=== PATIENT | female | born 1965 | race Caucasian/White ===

== ENCOUNTER 2019-01-26 18:57 | Inpatient (IN) | payer BC ==
[~2019-01-26] VITALS: Ht 162.6 cm; Wt 71.3 kg
[~2019-01-26 18:57] MED LIST: PROMETHAZINE HC25 M1 PO; VENTOLIN HFA18 GM INH
[2019-01-26] MEDS ORDERED: NOVOLOG100 UNIT/2 SQ (19:34)
--- NOTE | 2019-01-27 | NUR ---
PT ARRIVED VIA STRETCHER WITH NURSING TRANSISTOR TESTER. INSULIN DRIP INFUSING AND 5 UNITS/HR. PT BLOOD SUGAR UPON ARRIVAL 262, DRIP TITRATED TO 4.2 UNITS/HR AT THIS TIME. PT VOMIITING UPON ARRIVAL. COFFEE GROUND EMESIS NOTED. PT GIVEN PRN NAUSEA MEDICATION (SEE EMAR).
--- NOTE | 2019-01-27 00:50 | NUR ---
PT NO LONGER NAUSEATED OR WRETCHING. RESTING WITH EYES CLOSED, BREATHING SHALLOW BUT UNLABORED. OXYGEN SATURATIONS DROPPED BREIFLY INTO THE MID 60'S WHILE PT WAS SLEEPING. PLACED ON 2 L NC AT THIS TIME.
--- NOTE | 2019-01-27 01:00 | NUR ---
INSULIN DRIP TITRATED TO 2.8 UNITS/HOUR FOR A BLOOD GLUCOSE OF 203. LACTATED RINGERS BOLUS CONTINUES TO INFUSE AT THIS TIME.
--- NOTE | 2019-01-27 02:00 | NUR ---
INSULIN DRIP TITRATED TO 4 UNITS/HR FOR A BLOOD GLUCOSE OF 203
--- NOTE | 2019-01-27 02:19 | NUR ---
PT NAUSEATED AND DRY HEAVING. GIVEN PRN ATIVAN AT THIS TIME.
--- NOTE | 2019-01-27 03:16 | NUR ---
INSULIN DRIP TITRATED TO 1.8 UNITS/HR FOR A BLOOD GLUCOSE OF 151. IV FLUIDS SWITCHED TO D5 1/2 NS AT 125 AN HOUR FOR BLOOD GLUCOSE LESS THAN 200. PT RESTING WITH EYES CLOSED. BREATHING EVEN AND UNLABORED R=16. PT OXYGEN SATURATIONS AT 100 PERCENT ON 2 L NC
--- NOTE | 2019-01-27 04:00 | NUR ---
IN TO ASSESS PATIENT, PT REMAINS ASLEEP DURING ASSESSMENT. LUNGS SOUND DIMINISHED IN BOTH BASES. RESPIRATIONS EVEN, SHALLOW, BUT UNLABORED R=18.
--- NOTE | 2019-01-27 05:00 | NUR ---
INSULIN DRIP TITRATED TO 2.4 UNITS/HR FOR BLOOD GLUCOSE OF 179.
--- NOTE | 2019-01-27 06:15 | NUR ---
PT UP TO BSC TO VOID AND BACK TO BED. STEADY OF FEET. DENIES NAUSEA OR PAIN AT THIS TIME. ABLE TO TOLERATE ICE CHIPS. CALL LIGHT WITHIN REACH. NO FURTHER NEEDS AT THIS TIME.
--- NOTE | 2019-01-27 06:30 | NUR ---
PT GIVEN PRN ZOFRAN FOR NAUSEA (SEE EMAR).
--- NOTE | 2019-01-27 07:28 | NUR ---
REPORT RECEIVED FROM MANAGER TECHNICAL SALES RN.
--- NOTE | 2019-01-27 08:00 | NUR ---
ASSESSMENT COMPLETED. PT STILL WITH NAUSEA. REGLAN ADNINSTERED. PT UNABLE TO TOLERATE ICE CHIPS. PT WITH HARCH PRODUCTIVE COUGH. COUGHING UP MODERATE AMOUNT OF GREEN SPUTUM. BASES OF LUNGS DIM. PULSES +2. PT GENERALLY PUFFY ALL OVER. NO PITTING EDEMA. PT ON RA. SATURATION 95%. PT TACHY AT 106. AFEBRILE. PT DROWSY BUT ORIENTED. BLOOD SUGAR TAKEN AT 196. TITRATED INSULINE FORM 2.3 TO 2.8. DOUBLE CHECKED BY DARRION BOWEN. CALL LIGHT IN REACH. UPDATED ON PLANE OF CARE.
--- NOTE | 2019-01-27 08:30 | NUR ---
NAUSEA UNRELIEVED WITH REGLAN. 1MG ATIVAN ADMINSITERED. PT WITH INCREASED DROWSINESS. O2 SATURATION TO 87%. 2L NC PLACED. SATS NOW 96%.
--- NOTE | 2019-01-27 09:00 | NUR ---
BLOOD SUGAR 169. TITRATED DRIP TO 2.4. DOUBLE CHECKED BY DARRION BOWEN. PT STILL DROWSY. CHANGED FLUIDS TO D5 AT 125. 500ML LR BOLUS INFUSING AT 550ML/HR. IV STARTED IN LEFT HAND.
--- NOTE | 2019-01-27 10:00 | NUR ---
ASLEEP, ACCUCHECK-181. INSULIN GTT REMAINS 2.4 UNITS/HR. NO FUTHER CHANGES.
--- NOTE | 2019-01-27 10:24 | EKG ---
[facility] [address] [facility] [place] [address] Signed Sinus tachycardia Possible Left atrial enlargement Borderline ECG When compared with ECG of 02-FEB-2016 14:20, Nonspecific T wave abnormality now evident in Anterolateral leads Confirmed by CARLENE DEMPSEY DO ([id number]) on 01/27/2019 10:24:39 AM Electronically Signed By: CARLENE DEMPSEY DO 01/27/19 1024 PATIENT NAME: VERNBRANDONMARIBEL YANEZ Electrocardiogram DATE OF : 69 PHYSICIAN: CARLENE DEMPSEY DO REPORT #: [id number] REPORT IS CONFIDENTIAL AND NOT TO BE RELEASED WITHOUT AUTHORIZATION
--- NOTE | 2019-01-27 10:59 | NUR ---
BLOOD SUGAR 192. TITRATED TO 2.8ML/HR. PT STILLS SOMNULENT. WAKES TO LIGHT TOUCH. CALL LIGHT IN REACH.
--- NOTE | 2019-01-27 11:40 | NUR ---
PT ASSISTED TO SIDE OF BED. ABLE TO TAKE 3 BITES OF ICE CHIPS W/O NAUSE OR VOMITING. TAMAFLU ADMINSTERED. PT TOLERATED WELL. WILL CONT TO MONITOR.
--- NOTE | 2019-01-27 12:00 | NUR ---
BLOOD SUGAR 165. INSUIN TITRATED TO 2.4.
--- NOTE | 2019-01-27 13:10 | NUR ---
BLOOD SUGAR 154. TITRATED DRIP TO 1ML/HR. PT UP TO BSC. VOIDED 330ML. ASSISTED BACK TO BED. DRANK SOME WATER AND ATE ICE SHIPS WITHOUT NAUSEA OR VOMITING. CALL LIGHT IN REACH. DENIES PAIN.
--- NOTE | 2019-01-27 14:20 | NUR ---
BLOOD GLUCOSE 189. TITRATED TO 2.8ML/HR. PT LYING IN BED WITH EYES CLOSED. RESPIRATIONS 16 EQUAL AND NONLABORED. CALL LIGHT IN REACH.
--- NOTE | 2019-01-27 15:21 | NUR ---
BLOOD SUGAR 161. TITRATED TO 2ML/HR. PT SITTING UP AT SIDE OF BED MORE ALERT. ABLE TO ANSWER QUESTIONS.ON RA. DRANK 300 ML WITH NO NAUSEA/VOMITING. DENIES NAUSEA/PAIN AT THIS TIME. REGLAN ADMINISTERED AND POTASSIUM STARTED. CALL LIGHT IN REACH. PT DENEIS FURTHER NEEDS.
--- NOTE | 2019-01-27 16:04 | NUR ---
PT WITH STOOL INCONTINENCE. LINENS CHANGED. PT UP TO [facility]. VOIDED 300ML. PT ASSISTED TO SIT UP IN CHAIR. [facility]. MINT TEA PROVIDED PER PT REQUEST. DENIES NAUSEA OR PAIN.
--- NOTE | 2019-01-27 17:00 | NUR ---
BLOOD GULOSE 129. INSULIN TITRATED TO 0.7.
--- NOTE | 2019-01-27 18:00 | NUR ---
BLOOD SUGAR 163. DRIP KEPT AT 0.7ML/HR. LANTUS 18 UNITS ADMINISTERED. PT ATE 20% OF LIQUID DINNER TRAY. DR DEMPSEY TO BEDSIDE TO TALK TO PT. NEW ORDERS RECIEVED. PT IN BED. CALL LIGHT IN REACH.
--- NOTE | 2019-01-27 19:02 | NUR ---
INSULIN GTT DC'D PER ORDERS. PATIENT IS RESTFUL. NO FUTHER CHANGES.
--- NOTE | 2019-01-27 19:19 | NUR ---
PT REPORT RECIEVED FROM CCU RN. CARE OF PATIENT ASSUMED AT THIS TIME.
--- NOTE | 2019-01-27 19:45 | NUR ---
IN ROOM FOR ASSESSMENT. PT SLEEPY, BUT RESPONDS TO QUESTIONS AND INSTRUCTIONS APPROPRIATELY. DENIES NAUSEA OR PAIN. POTASSIUM INFUSING. CALL LIGHT WITHIN REACH. NO FURTHER NEEDS AT THIS TIME.
--- NOTE | 2019-01-27 20:55 | NUR ---
PT AMBULATED TO BATHROOM, STAND BY ASSIST ONLY REQUIRED. STEADY ON FEET. OM CARES PERFORMED INDEPENDENTLY. DENIES PAIN OR NAUSEA. CALL LIGHT WITHIN REACH. NO FURTHER NEEDS AT THIS TIME.
--- NOTE | 2019-01-27 22:00 | NUR ---
PT RESTING WITH EYES CLOSED. BREATHING EVEN AND UNLABORED R=20. PT HAS INTERMITTENT PRODUCTIVE COUGH. PATIENT BELONGINGS AND CALL LIGHT WITHIN REACH.
--- NOTE | 2019-01-27 23:47 | NUR ---
IN ROOM FOR ASSESSMENT. PT ALERT AND ORIENTED, DENIES PAIN, NAUSEA, OR DISCOMFORT. LUNGS SOUND CLEAR IN ALL AIR CORADO. PT OXYGEN SATURATIONS AT 93 PERCENT ON 2 L NC. CALL LIGHT WITHIN REACH. NO FURTHER NEEDS AT THIS TIME.
--- NOTE | 2019-01-28 02:46 | NUR ---
WHILE IN A DEEP SLEEP PT IS HAVING INTERMITTENT PERIODS OF SLEEP APNEA. O2 SATURATIONS DROP INTO MID 80'S WHILE ON 2 L NC, AND THEN BACK UP INTO THE MID 90'S.
--- NOTE | 2019-01-28 03:42 | NUR ---
IN ROOM FOR ASSESSMENT. PT AWOKE TO HAVE TEMPERATURE TAKEN BUT THEN FELL BACK ASLEEP WHILE ASSESSMENT WAS COMPLETED. LUNGS CLEAR. OXYGEN SATURATIONS AT 90-92 PERCENT ON 2 L NC, WITH SHORT INTERMITTENT PERIODS OF DESATURATION INTO THE MID 80S. WILL CONTINUE TO MONITOR
--- NOTE | 2019-01-28 05:07 | NUR ---
PT UP AND AMBULATED TO BATHROOM, BEGAN MENSES. FEMININE HYGIENE PRODUCTS PROVIDED. PT ALERT AND ORIENTED. STEADY ON FEET. PT DENIES NAUSEA. PT STATES, "I AM FEELING BETTER THAN I HAVE, AND WOULD LIKE A SHOWER TODAY". BACK IN BED, CALL LIGHT WITHIN REACH. NO FURTHER NEEDS AT THIS TIME.
--- NOTE | 2019-01-28 06:12 | NUR ---
PT REMOVED OXYGEN WHILE SLEEPING, SATURATIONS DROPPED INTO THE MID 80'S. PT PLACED BACK ON 2 L NC. SATURATIONS BACK UP BETWEEN 88-92 PERCENT AT THIS TIME.
--- NOTE | 2019-01-28 07:30 | NUR ---
REPORT RECIEVED. PATIENT IS UP TO BR, BACK TO BED. DENIES PAIN. TALKED WITH PATIENT ABOUT POC FOR DAY, IS UNDERSTANDING.
--- NOTE | 2019-01-28 07:50 | NUR ---
IV SITE TO LEFT HAND LEAKING, THIS DC'D WITH CATH INTACT.
--- NOTE | 2019-01-28 08:30 | NUR ---
BACK TO BR TO VOID AND EXPELL LIQUID STOOL. STATES SHE IS HAVING MENSTRUAL CRAMPS. TO CHAIR FOR BREAKFAST.
--- NOTE | 2019-01-28 09:00 | NUR ---
TOOK FEW BITES OF BREAKFAST, TOLERATED WELL. DENIES NAUSEA.
--- NOTE | 2019-01-28 09:20 | NUR ---
DR. DEMPSEY HERE TO SEE PATIENT. ORDERS RECIEVED TO TRANSFER TO MED-SURG.
--- NOTE | 2019-01-28 10:00 | NUR ---
SLEEPING IN CHAIR. NO DISTRESS NOTED.
--- NOTE | 2019-01-28 10:30 | NUR ---
SLEEPING IN CHAIR. NO DISTRESS NOTED.
--- NOTE | 2019-01-28 11:30 | NUR ---
AMBULATED TO ROOM 123. SHOWER TAKEN. IS STABLE ON FEET. DENIES PROBLEMS.
--- NOTE | 2019-01-28 12:15 | NUR ---
IV 22 STARTED TO LEFT HAND.
--- NOTE | 2019-01-28 12:30 | NUR ---
PATIENT DOING WELL. SITTING UP IN BED READY TO EAT LUNCH. BEDSIDE REPORT GIVEN TO Ian HOSKINS RN. ACCUCHECK-186. 4 UNITS INSULIN GIVEN.
--- NOTE | 2019-01-28 12:43 | NUR ---
RECIEVED BEDSIDE REPORT FROM DARRION CCU RN. PT AWAKE AND ALERT IN BED. SHE HAS SHOWERED, HAS A NEW IV IN LFA PER HER REQUEST. EATING WELL. DRINKING WELL. ACCUCHECK AND SS INSULIN. NO NEEDS AT THIS TIME.
--- NOTE | 2019-01-28 15:13 | NUR ---
PT RESTING. NO NEEDS AT THIS TIME. STATES NEW IV IS MUCH MORE COMFORTABLE THAN PREVIOUS ONE. CALL LIGHT AND WATER IN REACH.
--- NOTE | 2019-01-28 16:08 | NUR ---
HELPED PATIENT ODERED HER DINNER. WHEN SHE GOT OVER HERE DARRION FROM CCU HELPED HER WITH HER SHOWER.
--- NOTE | 2019-01-28 19:41 | NUR ---
DID PATIENT'S BLOOD SUGAR CHECK BEFORE HER DINNER CAME.
--- NOTE | 2019-01-28 21:17 | NUR ---
PT INDEPENDENT IN ROOM, NO COUCH NOTED. COOP WITH ASSESSMENT. LUNGS SLIGHTLY DIM AT BASES, ON ROOM AIR. NO C/O PAIN. CBG 223, RECEIVED 4 UNITS SS INSULIN HUMALOG. SL PATENT, NO C/O N/V. VOIDING LARGE AMOUNTS OF URINE. RED COLORED PT JUS STARTED HER MENSES, ON DROPLET ISOLATION, CALL LIGHT AND FLUIDS AT BEDSIDE,
--- NOTE | 2019-01-29 00:01 | NUR ---
resting, eyes closed, no distress, contineus on droplet isolation. independent in room. call light at bedside, no n.v
--- NOTE | 2019-01-29 02:00 | NUR ---
resting, eyes closed, resp even and unlabored, no distress. Continues on droplet isolation, call light at bedside
--- NOTE | 2019-01-29 06:05 | NUR ---
PT HAS SLEPT MOST OF THIS SHIFT, CONTINUES TO BE ON DROPLET PRECAUTION S. PT ON ROOM AIR, MOIST SLIGHTLY PRODUCTIVE COUGH PRESENT, NO C/O SOB, INDEPENDENT IN ROOM. CBG 223 AT HS, RECEIVED 4 UNITS SLIDING SCALE, NO C/O PAIN, COOP WITH ASSESSMENT, PT TO BE DC HOME TODAY. TOLERATING DIET WELL
--- NOTE | 2019-01-29 08:00 | NUR ---
PT SITTING UP IN BED EATING BREAKFAST, ALERT AND ORIENTED TO ALL. PT DENIES PAIN, NAUSEA OR OTHER CONCERN AT THIS TIME. IV TO LEFT HAND FLUSHES EASILY, DRESSING CDI. ASSESSMENT COMPLETED. FRESH COFFEE PROVIDED PER PT REQUEST. CALL LIGHT WITHIN REACH.
[2019-01-29] MEDS ORDERED: OSELTAMIVIR PHO75 MG PO (09:14)
[2019-01-29] MEDS ORDERED: TOUJEO SOL300 UNIT/1 SUB-Q (10:04)
[2019-01-29] MEDS ORDERED: FARXIGA10 MG PO (10:05)
[2019-01-29] MEDS ORDERED: PROTONIX40 MG PO (10:05)
--- NOTE | 2019-01-29 10:19 | NUR ---
MED REC COMPLETE
--- NOTE | 2019-01-29 10:53 | NUR ---
PT INDEPENDENT IN ROOM. SITTING ON COUCH. DC INSTRUCTIONS GIVEN, QUESTIONS ANSWERED. IV DC'D, CATH TIP INTACT, SITE WITHOUT REDNESS OR INFLAMMATION. PT WOULD LIKE TO STAY TO EAT LUNCH. CALL LIGHT WITHIN REACH.
--- NOTE | 2019-01-29 10:55 | NUR ---
PATIENT SITTING UP IN BED WATCHING TV. FRESH WATER GIVEN. CALL LIGHT IN REACH. NO FURTHER NEEDS AT THIS TIME.
== END 2019-01-29 12:50 | disposition home or self-care (01) | DRG 73 ==
LOC: ED 18:57 → CCU 22:22 → MS 01-28 11:25
PROVIDERS: ADMIT Student in an Organized Health Care Education/Training Program
DX: E10.43 Type 1 diabetes mellitus with diabetic autonomic (poly)neuropathy (principal); K22.6 Gastro-esophageal laceration-hemorrhage syndrome; N17.9 Acute kidney failure, unspecified; E87.0 Hyperosmolality and hypernatremia; E10.10 Type 1 diabetes mellitus with ketoacidosis without coma; K31.84 Gastroparesis; K21.9 Gastro-esophageal reflux disease without esophagitis; J10.1 Influenza due to other identified influenza virus with other respiratory manifestations; Z79.899 Other long term (current) drug therapy; Z79.4 Long term (current) use of insulin
CPT/HCPCS: 36415; 80048; 80053; 81001; 82010; 82800; 83735; 84100; 85025; 85610; 85730; 86850; 86900; 86901; 93005; 93010; 96361; 96374; 96375; 96376; 99285-25; C9113; J1815; J2060; J2405; J2765; J3480; J7030; J7042; J7060; J7070; J7121

== ENCOUNTER 2020-12-23 20:47 | Inpatient (IN) | payer OTHER ==
[~2020-12-23] VITALS: Ht 162.6 cm; Wt 82.6 kg
[~2020-12-23 20:47] MED LIST changes: +FARXIGA10 MG PO; +NOVOLOG100 UNIT/2 SQ; +OSELTAMIVIR PHO75 MG PO; +PROTONIX40 MG PO; +TOUJEO SOL300 UNIT/1 SUB-Q
--- NOTE | 2020-12-24 07:22 | EKG ---
[facility] [address] [facility] [place] [address] \T\ T wave abnormality, consider inferior ischemia ST \T\ T wave abnormality, consider anterolateral ischemia Abnormal ECG When compared with ECG of 26-JAN-2019 19:57, ST now depressed in Lateral leads T wave inversion now evident in Inferior leads T wave inversion now evident in Anterolateral leads Confirmed by NILTON MAHAJAN MD ([id number]) on 12/24/2020 7:22:43 AM Electronically Signed By: NILTON MAHAJAN MD 12/24/20 0722 PATIENT NAME: BRANDON PORRAS Electrocardiogram DATE OF : 69 PHYSICIAN: NILTON MAHAJAN MD REPORT #: [id number] REPORT IS CONFIDENTIAL AND NOT TO BE RELEASED WITHOUT AUTHORIZATION
--- NOTE | 2020-12-25 07:17 | CONS ---
[facility] [address] [place], [place] [address] Signed DATE OF CONSULTATION: 12/24/2020 CHIEF COMPLAINT: Coffee-ground emesis. HISTORY OF PRESENT ILLNESS: Brandon is a 55-year-old obese diabetic female, who unfortunately found herself with high blood sugars and she could not get them to come down. She started vomiting and developed coffee-grounds emesis. She came to the emergency room for evaluation. She is minimally responsive, but follows very simple commands. She has been tachycardic and her lactic acid was elevated with very high blood sugars. She was in high output renal failure. She has been admitted to the Internal Medicine Service. She received one dose of cefepime. She has been receiving IV fluids and initially a bolus insulin, now insulin drip. She is off her norepinephrine drip. Her labs are improving, although she still quite sick. Blood sugars were down below 200. An NG tube in place and she does have the dark coffee-ground fluid from her stomach. Otherwise, she has actually made some improvements overnight. I have been asked to see her as a general surgeon on-call. PAST MEDICAL HISTORY: GI bleed, type 2 diabetes, gastroesophageal reflux disease, pneumonia, anemia, hypokalemia, esophagitis, and T3-T4 compression fracture from a horse accident. PAST SURGICAL HISTORY: Upper endoscopy in 2013 and in [address] Rivera for acid reflux. A colonoscopy in [address] Rivera for collagenous colitis and a recent upper endoscopy in October 2020 with that same group with yeast esophagitis, requiring Diflucan. Also cataract surgery with Dr. Sergey Gaines. SOCIAL HISTORY: She does not smoke or drink. Dr. Bianca Lock is her primary care provider. She prefers the [facility]. Darío is her at . FAMILY HISTORY: Not available. REVIEW OF SYSTEMS: I reviewed her last progress note from Dr. Lock's office. ALLERGIES: None. MEDICATIONS: 1. Oseltamivir . Electronically Signed By: VICTOR MANUEL MYERS MD 12/25/20 0717 PATIENT NAME: BRANDON PORRAS CONSULTATION DATE OF : 69 REPORT #: [id number] PHYSICIAN: VICTOR MANUEL MYERS MD PCP: BIANCA LOCK MD REPORT IS CONFIDENTIAL AND NOT TO BE RELEASED WITHOUT AUTHORIZATION [facility] [address] [place], [place] [address] Signed 2. Farxiga. 3. Toujeo. 4. Protonix. 5. Also, Diflucan. PHYSICAL EXAMINATION: VITAL SIGNS: Her blood pressure is 95/53, heart rate 111, respiratory rate 14, temperature is 98.3, and she is 96% on 2 L nasal cannula. She is 5 feet 4 inches, at 82 kg. GENERAL: Brandon is a 55-year-old female, who is minimally responsive. She seems to recognize me from taking care of her previously. Although, she has very little movement to her head or extremities. LUNGS: Clear to auscultation bilaterally. HEART: Tachycardic. ABDOMEN: Soft, flat, nontender. LABORATORY DATA: Her white count is down to 19.8, hemoglobin is 12, mean cell volume 79, and platelets are 252. Sodium is 148, potassium is better at 3.8, CO2 is better at 19, the BUN is now down to 43 and creatinine is down to 2.06, glucose is around 175. Liver function tests are negative. Her erythrocyte sedimentation rate 2. Albumin is 2.7. Her troponin is 263. Lipase 84. Lactic acid down to 3.1. The COVID is negative. ASSESSMENT AND PLAN: Brandon is a 55-year-old obese diabetic female, who clearly came in with hyperglycemia. She did have classic ketoacidosis, but certainly is quite ill. The hematemesis I suspect is secondary to all of this. It should settle down on its own. If she is awake enough in a day or two to swallow, she could certainly do nystatin swish and swallows for her esophagus. In the meantime, we will follow along with the Medical Service. This was discussed with Brandon and her nurse. Victor Manuel Myers MD ALB/MODL /[id number] cc: Bianca Lock MD Electronically Signed By: VICTOR MANUEL MYERS MD 12/25/20 0717 PATIENT NAME: BRANDON PORRAS CONSULTATION DATE OF : 69 REPORT #: [id number] PHYSICIAN: VICTOR MANUEL MYERS MD PCP: BIANCA LOCK MD REPORT IS CONFIDENTIAL AND NOT TO BE RELEASED WITHOUT AUTHORIZATION [address] [address] Signed Victor Manuel Myers MD Copies: BIANCA LOCK MD, ANDREW L MD ~ Electronically Signed By: VICTOR MANUEL MYERS MD 12/25/20 0717 PATIENT NAME: BRANDON PORRAS CONSULTATION DATE OF : 69 REPORT #: [id number] PHYSICIAN: VICTOR MANUEL MYERS MD PCP: BIANCA LOCK MD REPORT IS CONFIDENTIAL AND NOT TO BE RELEASED WITHOUT AUTHORIZATION
[2020-12-26] MEDS ORDERED: LATANOPROST2.5 ML OS (16:51)
[2020-12-26] MEDS ORDERED: TIMOLOL MALEATE5 M2 OS (16:55)
[2020-12-26] MEDS ORDERED: TRESIBA FL100 UNIT/1 SUB-Q (16:58)
--- NOTE | 2020-12-29 07:52 | OR ---
[facility] [address] [place], [place] [address] Signed DATE OF OPERATION: 12/27/2020 SURGEON: Victor Manuel Myers MD PREOPERATIVE DIAGNOSES: 1. Coffee-ground emesis. 2. Hiatal hernia. 3. Possible Muhammad's esophagus with negative biopsies. 4. Chronic anemia. 5. Odynophagia. POSTOPERATIVE DIAGNOSES: 1. Moderate-sized antral gastric ulcer. 2. Moderate patchy gastritis. 3. Small to moderate sized hiatal hernia. 4. Chronic distal esophagitis/Muhammad's esophagus. PROCEDURE: Esophagogastroduodenoscopy with CLOtest and biopsies of the antrum and GE junction. ESTIMATED BLOOD LOSS: None. INDICATIONS: Brandon is a 55-year-old type 2 diabetic who unfortunately developed rather significant hyperglycemia with lactic acidosis. She had been in the emergency room and quite ill. She had been admitted to the Internal Medicine Service. Associated with that, she was having coffee-ground emesis. It is not sure which came first. She also has chronic anemia. In due time we tracked down her records and we were able to talk to Brandon more this morning, now that she is alert, awake and interactive. She talks about a possible history of Muhammad's esophagus for which she has a scope every two or three years. We did track down those records and earlier this summer those biopsies were negative. She does have a hiatal hernia. She has been having odynophagia and was not able to go home at this point. Consequently, the Internal Medicine Service asked that I see her for upper endoscopy. I had met with Brandon several times including this morning. Today, she was much more alert, awake, and interactive. Of course, she recalls endoscopy quite well. She understands there is risk including, but not limited to gas bloating, crampy abdominal pain, bleeding, perforation requiring surgery, and missed diagnosis. Also, given her rather significant recent illness, we asked for monitored anesthesia care. That actually proved to be seaman today, she needed some Electronically Signed By: VICTOR MANUEL MYERS MD 12/29/20 0752 PATIENT NAME: BRANDON PORRAS OPERATIVE REPORT DATE OF : 69 REPORT #: [id number] PHYSICIAN: VICTOR MANUEL MYERS MD PCP: BIANCA HARKINS MD REPORT IS CONFIDENTIAL AND NOT TO BE RELEASED WITHOUT AUTHORIZATION [facility] [address] [place], [place] [address] Signed airway control and she is fairly sensitive to the propofol either awake and coughing airway control. In addition, we found in her records that she may have had some yeast esophagitis. She took a two-week course of Diflucan. She uses Tums intermittently. She has been using a Protonix once or twice a day with good results and a marked improvement in her symptoms. PROCEDURE NOTE: Brandon was taken into our endoscopy suite and placed in a supine semi-recumbent position. She was given monitored anesthesia care per our nurse small piece cutter. A bite block was utilized for the case. The adult gastroscope was introduced and advanced under direct visualization of the camera out into the third portion of the duodenum. The duodenum and pyloric channel were unremarkable. The stomach showed rather significant moderate areas of patchy gastritis. She had three small ulcers toward the proximal antrum. One was moderate in size and I suspect this is probably the source of her bleeding and no current bleeding at this time. Upon retroflexion of the scope, we could see she has a small to moderate sized hiatal hernia. We took biopsies from the antrum for CLOtest as well as pathologic review. The scope was then withdrawn up through the area of the GE junction, which was compliant without stricture. There were no gastric or esophageal varices. She does have disruption to the Z-line. It is not the classic velvety appearance of Muhammad's esophagus. We went ahead and took a single biopsy along this area for pathologic review knowing that she had biopsies earlier this summer. Otherwise, the distal esophagus, middle esophagus and proximal esophagus were unremarkable. The arytenoids and vocal cords were also unremarkable. After this, the gas had been suctioned out and the gastroscope removed. Brandon tolerated procedure well with the help of our anesthesia provider. RECOMMENDATIONS: Brandon will be returned to her room on IV fluids and can resume diet as tolerated. She should stay on her Protonix. I am more than happy to see her in a week or so for followup with respect to the biopsies and the findings on her endoscopy. Her vacuum worker also recommended another followup in three years for repeat biopsies to rule out her Muhammad's esophagus. Victor Manuel Myers MD [facility] /[id number] Electronically Signed By: VICTOR MANUEL MYERS MD 12/29/20 0752 PATIENT NAME: BRANDON PORRAS OPERATIVE REPORT DATE OF : 69 REPORT #: [id number] PHYSICIAN: VICTOR MANUEL MYERS MD PCP: BIANCA HARKINS MD REPORT IS CONFIDENTIAL AND NOT TO BE RELEASED WITHOUT AUTHORIZATION [facility] [address] [place] [address] Signed cc: MD Bianca Araujo MD Andrew L Bower, MD Copies: BIANCA HARKINS MD, ANDREW L MD ~ Electronically Signed By: VICTOR MANUEL MYERS MD 12/29/20 0752 PATIENT NAME: BRANDON PORRAS OPERATIVE REPORT DATE OF : 69 REPORT #: [id number] PHYSICIAN: VICTOR MANUEL MYERS MD PCP: BIANCA HARKINS MD REPORT IS CONFIDENTIAL AND NOT TO BE RELEASED WITHOUT AUTHORIZATION
--- NOTE | 2020-12-31 14:29 | PATH ---
[facility] [address], [place] [address] Signed SPECIMEN(S): A ANTRUM/PYLORUS BIOPSY SPECIMEN(S): B GE JUNCTION BIOPSY SPECIMEN SOURCE: A. ANTRUM/PYLORUS BIOPSY B. GE JUNCTION BIOPSY CLINICAL HISTORY: Pre-Op: Coffee ground emesis. Chronic [illegible]. MICROSCOPIC DESCRIPTION: Histologic sections of all submitted blocks are examined by light microscopy. These findings, together with the gross examination, support the pathologic diagnosis. FINAL PATHOLOGIC DIAGNOSIS: A. Stomach, antrum/pylorus, biopsy: - Gastric antral mucosa with no significant pathologic changes. - Negative for Helicobacter pylori with HE stains. B. Gastroesophageal junction, biopsy: - Squamoglandular mucosa with active esophagitis and intestinal metaplasia; negative for dysplasia. - Negative for fungal organisms by special stains (GMS, valid controls). BRP:cml:C2NR GROSS DESCRIPTION: Two specimens are received in two containers, labeled "BQ." A. The specimen labeled "BQ, antrum biopsy" is received in formalin and consists of one fan soft tissue fragment(s) that measure 0.2 cm in greatest dimension. The specimen is entirely submitted in cassette (A1). B. The specimen labeled "BQ, GE junction biopsy" is received in formalin and consists of one fan soft tissue fragment(s) that measure 0.2 cm in greatest dimension. The specimen is entirely submitted in cassette (B1). JS (under the direct supervision of a pathologist) The Gross Description was prepared using a voice recognition system. The report was reviewed for accuracy; however, sound-alike word errors, addition and/or deletions may occur. If there is any question about this report, please contact Client Services. PERFORMING LABORATORY: PATIENT NAME: BRANDON PORRAS PATHOLOGY DATE OF : 69 REPORT #: [id number] PHYSICIAN: ALLISON BELTRAN PCP: BIANCA HARKINS MD REPORT IS CONFIDENTIAL AND NOT TO BE RELEASED WITHOUT AUTHORIZATION [facility] [address] [address] Signed The technical component was performed [place] [address] (Trans Router: Karma Zavala MD; CLIA# [id number]). Professional interpretation was performed by [facility], [address] [address] (CLIA# [id number]). Diagnostician: Hamilton Moreira MD Pathologist Electronically Signed 12/31/2020 Copies: ~ PATIENT NAME: BRANDON PORRAS PATHOLOGY DATE OF : 69 REPORT #: [id number] PHYSICIAN: ALLISON BELTRAN PCP: BIANCA HARKINS MD REPORT IS CONFIDENTIAL AND NOT TO BE RELEASED WITHOUT AUTHORIZATION
== END 2020-12-29 13:20 | disposition home or self-care (01) | DRG 377 ==
LOC: ED 20:47 → CCU 12-24 03:02 → MS 12-24 03:02
PROVIDERS: ADMIT Internal Medicine; ATTEND Internal Medicine
PROC: 30233N1 Transfusion of Nonautologous Red Blood Cells into Peripheral Vein, Percutaneous Approach (ICD-10-PCS; principal; 2020-12-23)
PROC: 02HV33Z Insertion of Infusion Device into Superior Vena Cava, Percutaneous Approach (ICD-10-PCS; 2020-12-23)
PROC: 3E043XZ Introduction of Vasopressor into Central Vein, Percutaneous Approach (ICD-10-PCS; 2020-12-23)
PROC: 0DB48ZX Excision of Esophagogastric Junction, Via Natural or Artificial Opening Endoscopic, Diagnostic (ICD-10-PCS; 2020-12-27)
PROC: 0DB68ZX Excision of Stomach, Via Natural or Artificial Opening Endoscopic, Diagnostic (ICD-10-PCS; 2020-12-27)
DX: K25.4 Chronic or unspecified gastric ulcer with hemorrhage (principal); E11.10 Type 2 diabetes mellitus with ketoacidosis without coma; G93.41 Metabolic encephalopathy; N17.9 Acute kidney failure, unspecified; I24.8 Other forms of acute ischemic heart disease; E87.0 Hyperosmolality and hypernatremia; Z20.822 Contact with and (suspected) exposure to COVID-19; R31.0 Gross hematuria; K21.00 Gastro-esophageal reflux disease with esophagitis, without bleeding; E86.0 Dehydration; E66.9 Obesity, unspecified; R13.10 Dysphagia, unspecified; Z79.4 Long term (current) use of insulin; Z79.899 Other long term (current) drug therapy; Z98.890 Other specified postprocedural states
CPT/HCPCS: 36430; 36556; 51702; 70450; 71045; 74177; 80048; 80053; 80500; 81001; 82010; 82553; 82803; 83009; 83036; 83605; 83690; 83735; 84100; 84484; 84703; 85007; 85018; 85025; 85610; 85651; 86850; 86900; 86901; 86922; 87040; 93005; 93010; 93306; 99285-25; A9270; C9113; C9803; J0692; J0780; J1450; J1815; J2405; J2550; J2704; J2765; J3480; J7030; J7120; J7121; P9016; Q9967; U0003

== ENCOUNTER 2021-10-28 11:44 | Inpatient (IN) | payer OTHER ==
[~2021-10-28] VITALS: Ht 162.6 cm; Wt 79.8 kg
[~2021-10-28 11:44] MED LIST changes: +LATANOPROST2.5 ML OS; +TIMOLOL MALEATE5 M2 OS; +TRESIBA FL100 UNIT/1 SUB-Q
[2021-10-28] MEDS ORDERED: ONDANSETRON HCL8 MG PO (15:40)
--- NOTE | 2021-10-28 15:40 | NUR ---
56 YEAR OLD FEMALE PATIENT ADMITTED TO CCU UNDER DR. CRUZ VIA STRETCHER WITH DX OF DKA. PATIENT HAS BEEN ILL AT HOME FOR THE PAST COUPLE OF DAY WITH N/V. PATIENT HAS RECIEVED 3 LITERS OF IVF IN ED. IS DROWSY, DID RECIEVE BENADRYL 25 MG, ZOFRAN AND INAPSINE IV IN ED FOR NAUSEA. INSULIN GTT INFUSING AT 5 UMITS/HR. ADMISSION PROCESS STARTED.
--- NOTE | 2021-10-28 16:30 | NUR ---
PATIENT SISTER HERE. PATIENT MORE ALERT AND FOLLOWING COMMANDS AND ABLE TO ANSWERE QUESTIONS.
--- NOTE | 2021-10-28 16:45 | NUR ---
LAB HERE FOR BLOOD DRAW.
--- NOTE | 2021-10-28 17:00 | NUR ---
REMAINS ON INSULIN GTT. ACCUCHECK 269, INSULIN GTT INFUSING AT 4.2 UNITS HR. HAD SMALL EMESIS OF COFFEE GROUND CONTENTS.
--- NOTE | 2021-10-28 18:00 | NUR ---
DR. CRUZ UPDATED ON MOST RESENT LAB RESULTS. ORDERS RECIEVED FOR NS AT 500 ML HR.
--- NOTE | 2021-10-28 18:45 | NUR ---
ZOFRAN GIVEN FOR NAUSEA.
--- NOTE | 2021-10-28 19:00 | NUR ---
DR. CRUZ AWARE OF ACCUCHECK OF 203. ORDERS RECIEVED TO HANG D5 1/2 NS AT 200 ML/HR, THIS DONE.
--- NOTE | 2021-10-28 20:00 | NUR ---
RECEIVED REPORT FROM DAY SHIFT RN. PT IS RESTING IN BED W/ HER EYES CLOSED W/ C/O NAUSEA UPON ASSESSMENT. DENIES PAIN AT THIS TIME. TOLERATING IVF AND INSULIN GTT ORDERED. VSS. CALL LIGHT AT HAND. WILL CONT TO MONITOR.
--- NOTE | 2021-10-28 22:16 | NUR ---
LAB RESULTS RECEIVED- NEW ORDERS RECEIVED FOR FLUIDS- SEE ORDERS FOR ADDITIONAL INFO. PT IS RESTING IN BED W/ HER EYES CLOSED AT THIS TIME. TOLERATING IVF AND INSULIN GTT. VSS. NO DISTRESS NOTED. RESPIRATIONS EVEN AND UNLABORED. CALL LIGHT WITHIN REACH. WILL CONT TO MONITOR.
--- NOTE | 2021-10-29 00:28 | NUR ---
PT UP TO COMMODE AT BEDSIDE W/ SBA TO VOID. TOLERATING IVF AND INSULIN GTT. DENIES PAIN AT THIS TIME. VSS. RESPIRATIONS EVEN AND UNLABORED. NO DISTRESS NOTED. CALL LIGHT AT BEDSIDE. WILL CONT TO MONITOR.
--- NOTE | 2021-10-29 01:55 | NUR ---
REPOSITIONED IN BED INDEPENDENTLY. TOLERATING IVF AND INSULIN GTT. NO SIGNS OF PAIN OR DISTRESS NOTED AT THIS TIME. VSS. RESPIRATIONS EVEN AND UNLABORED. CALL LIGHT AT HAND. WILL CONT TO MONITOR.
--- NOTE | 2021-10-29 04:00 | NUR ---
PT IS RESTING IN BED W/ HER EYES CLOSED AND APPEARS COMFORTABLE. CALL LIGHT WITHIN REACH. VSS. NO DISTRESS NOTED. WILL CONT TO MONITOR.
--- NOTE | 2021-10-29 05:10 | NUR ---
MORNING LABS DRAWN AND PENDING. VSS. CALL LIGHT WITHIN REACH. WILL CONT TO MONITOR.
--- NOTE | 2021-10-29 06:12 | NUR ---
PT REMAINS RESTING IN BED W/ HER EYES CLOSED AND APPEARS COMFORTABLE; REPOSITIONING SELF IN BED INDEPENDENTLY. CONT WITH INSULIN GTT- TOLERATING. VSS. CALL LIGHT WITHIN REACH. WILL CONT TO MONITOR.
--- NOTE | 2021-10-29 07:30 | NUR ---
PATIENT SHIFT REPORT RECIEVED FROM POLYGRAPH EXAMINER RN. PATIENT RESTING IN BED. PATIENT CALLS APPROPRIATELY. PER REPORT PATIENT HAS SLEPT WELL. PATIENT HAS SPUTUM THAT CAUSES HER TO COUGH AND GAG. PATIENT HAS CALL LIGHT IN REACH. WILL CONTINUE TO CLOSELY MONITOR.
--- NOTE | 2021-10-29 08:30 | NUR ---
THIS RN IN TO DO PATIENT ASSESSMENT. PATIENT RESTING I NBED A TTHIS TIME. PATIENT BREATH SOUNDS CLEAR. RR- EVEN AND UNLABORED. PATIENT DOES HAVE A PRODUCTIVE COUGH WITH THICK GREEN SPUTUM. PATIENT DOES OCCASIONALLY GAG ON SPUTUM. NO EMESIS THIS AM. SPO2 97 ON RA WHILE AWAKE. BOWEL TONES ACTIVE. PATIENT STATES BM YESTERDAY. PATIENTS PULSES STRONG. PATIENT DENIES ANY NEEDS AT THIS TIME. WILL CONTINUE TO CLOSELY MONITOR.
--- NOTE | 2021-10-29 08:55 | NUR ---
PATIENT RESTING IN BED, VITALS FADI&OS CHARTED. KLEIN EMPTIED. ORAL CARE PROVIDED. FAMILY IN ROOM. NO OTHER NEEDS AT THIS TIME
--- NOTE | 2021-10-29 10:45 | NUR ---
SPEAKING WITH MD DUMONT PATIENT MAY ADVANCE TO CLEAR LIQUIDS AND SEE IF HER FAMILY CAN BRING IN HER INSULIN PUMP. THEN CAN TRANSITION PATIENT OFF INSULIN GTT TO HER PUMP. PATIENT AGREEABLE TO PLAN OF CARE. PATIENT REQUESTING ICE CHIPS. WILL CONTINUE TO CLOSELY MONITOR.
--- NOTE | 2021-10-29 11:30 | NUR ---
PATIENT UP TO THE CAMMODE. PATIENT STOOD AND TOLERATED WELL. PATIENT STATES "I FEEL MUCH BETTER THAN YESTERDAY". PATIENT DOES STILL APPEAR TIERD AND HAS SLEPT OFF AND ON THIS MORNING. WILL CONTINUE TO CLOSELY MONITOR.
--- NOTE | 2021-10-29 12:02 | NUR ---
MED REC COMPLETE
--- NOTE | 2021-10-29 12:14 | NUR ---
MD MYERS IN AT THE BEDSIDE TO SEE PATIENT. PATIENT WORKING ON A CLEAR LIQUID TRAY AT THIS TIME. WILL CONTINUE TO CLOSELY MONITOR.
--- NOTE | 2021-10-29 15:11 | NUR ---
PATIENT UP TO THE BATHROOM TO HAVE A BM. LINEN CHANGED D/T SMALL AMOUNT OF INCONTINENT BM ON BEDDING. NEW UNDERGARMENTS GIVEN TO PATIENT. BLOOD SUGAR DONE. SEE FLOWSHEET FOR TITRATION. PATIENT BACK TO BED. FRESH WATER PROVIDED. PATIENT DENIES ANY OTHER NEEDS AT THIS TIME. WILL CONTINUE TO CLOSELY MONITOR.
--- NOTE | 2021-10-29 15:27 | NUR ---
PATIENTS SISTER ARRIVED WITH PATIENTS SUPPLIES. PATIENTS SISTER WILL ASSIST PATIENT WITH HER PUMP SET-UP. WILL NOTIFY MD DUMONT.
--- NOTE | 2021-10-29 16:00 | NUR ---
PATIENTS ESTEPHANIA IS HERE AT THE BEDSIDE TO ASSIST PATIENT WITH GETTING HER PUMP BACK IN PLACE PER MD ORR ORDERS. INSULIN GTT STOPPED AT THIS TIME. WILL CONTINUE TO MONITOR PATIENTS BLOOD SUGAR. PATIENTS DEXCOM BLOOD SUGAR MONITOR IN PLACE AND TANDEM PUMP IN PLACE. WHILE DEXCOM IS PROCESSING AND CALABRATING WITH PUMP WILL CONTINUE TO MONITOR BLOOD SUGARS. ONCE BLOOD SUGARS ARE READING WILL CHECK PATIENTS READINGS ON HER MACHINE AND OUR MACHINE FOR COMPARISON.
--- NOTE | 2021-10-29 17:30 | NUR ---
PATIENT HAS A COUNTINUOUS RATE ON HER INSULIN PUMP AT THIS TIME OF 3MLS/HR. PATIENT CALCULATED HER CARBS AND A BOLUS DOSE OF 4.5MLS WAS GIVEN THROUGH HER PUMP OF NOVOLOG INSULIN. PATIENT RESTING IN BED. CLEAR LIQUID DINNER TRAY PROVIDED. WILL CONTINUE TO CLOSELY MONITOR.
--- NOTE | 2021-10-29 18:15 | NUR ---
PATIENTS SON RAN AWAY AFTER SCHOOL. PATIENT JUST ATE AND IS NOW VERY STRESSED SINCE SHE IS NOT HOME TO HELP LOOK FOR HER SON. PATIENT BLOOD SUGAR STATES IT IS TRENDING UP AND IS CURRENTLY 361. PATIENTS PUMP CALCULATED NEW BASAL RATE BASED ON THIS AND PATIENT BOLUSED AN ADDITIONAL 4.5MLS PER HER SLIDING SCALE AND ADDITIONAL CARBS FOR DINNER. PATIENT NOW UP TO THE BATHROOM WITH LOOSE BM. WILL CONTINUE TO CLOSELY MONITOR.
--- NOTE | 2021-10-29 19:01 | NUR ---
PATIENTS BLOOD SUGAR 438 ON OUR MONITOR AND PATIENTS MONITOR IS READING HIGH, BUT SHOWS IT IS TRENDING DOWN PER HER MONITOR. CALLED AND UPDATED MD DUMONT. PER MD MONITOR PATIENTS BLODO SUGAR FOR NEXT SEVERAL HOURS AND ENSURE PATIENT IS TRENDING BACK DOWN. PATIENTS MONITOR IS GOING AT A BASAL RATE WELL. PATIENT REQUESTING IMODIUM FOR SEVERAL LOOSE STOOLS AFTER HER CLEAR LIQUID TRAY. PATIENT IS VERY SENSITVE TO FOODS AND WONDERS IF SHE HAD SOMETHING THAT IRRIATED HER STOMACH. NO NASUEA NOTED. PER MD WILL MONITOR STOOLS AND RE-EVALUATE IMODIUM. NO OTHER NEEDS AT THIS TIME. WILL CONTINUE TO CLOSELY MONITOR.
--- NOTE | 2021-10-29 20:30 | NUR ---
ACCU CHECK DONE AND COMPARED TO PATIENT'S HOME MONITOR. PATIENT DENIES ANY NAUSEA OR PAIN. VS STABLE. UNDERSTANDS PLAN FOR EGD TOMORROW AND CONSENT WAS SIGNED AND WITNESSED.
--- NOTE | 2021-10-29 21:30 | NUR ---
PATIENT'S GLUCOSE MONITOR READING >400. PATIENT REPORTS SHE WOULD NORMALLY USE A BOLUS DOSE TO CORRECT. PATIENT DID THIS FOR 5.5 UNITS. MD AWARE.
--- NOTE | 2021-10-29 22:00 | NUR ---
LABS DRAWN FROM PATIENT'S SL PER PROTOCOL. PATIENT RESTING IN BED. DENIES ANY CONCERNS.
--- NOTE | 2021-10-29 22:47 | NUR ---
REVIEWED LAB RESULTS WITH MD. PLAN TO MONITOR PATIENT'S BLOOD GLUCOSE VIA HER PERSONAL MONITOR AND CHECK WITH OUR GLUCOMETER PRN. ALLOWING PATIENT TO MANAGE HER INSULIN SHE NORMALLY WOULD.
--- NOTE | 2021-10-29 23:34 | NUR ---
PATIENT PROVIDED WITH SOME TEA. MONITOR READS >400, PATIENT BOLUSED 6.5 UNITS PER HER HOME UNIT.
--- NOTE | 2021-10-30 00:35 | NUR ---
PATIENT UP TO THE BATHROOM. DENIES ANY NEEDS OR CONCERNS. MONITOR CONTINUES TO READ HIGH >400 WITH TRENDING ARROW DOWN. PATIENT REPORTS THIS MEANS THE GLUCOSE SHOULD BE COMING DOWN AND WILL CONTINUE TO MONITOR IT.
--- NOTE | 2021-10-30 00:44 | NUR ---
PATIENT REPORTS AN INSULIN BOLUS OF 6.7 UNITS. PATIENT IS CONSIDERING CHANGING HER PUMP SITE IN THE NEXT HOUR IF THE GLUCOSE READINGS HAVE NOT IMPROVED. OFFERED ASSISTANCE WHEN PATIENT IS READY.
--- NOTE | 2021-10-30 02:00 | NUR ---
patient's monitor recalibrated with hospital glucometer. patient administered 10 unit bolus per her own management. will continue to monitor. see emar.
--- NOTE | 2021-10-30 05:00 | NUR ---
PATIENT CONTINUES TO HAVE ELEVATED BLOOD GLUCOSE LEVELS, VERIFIED ON LABS, ACCU CHECK AND HER HOME MONITOR. PATIENT CHANGED DEVICE SITE AND RECALIBRATED HER PUMP. WILL CONTINUE TO MONITOR.
--- NOTE | 2021-10-30 06:48 | NUR ---
DISCUSSED PATIENT'S STATUS WITH . REVIEWED GLUCOSE TRENDS AND LABS. NO NEW ORDERS. IN TO SEE PATIENT. PLAN FOR EGD CONFIRMED.
--- NOTE | 2021-10-30 07:30 | NUR ---
REPORT RECEIVED FROM NIGHT RN - PT RESTING IN BED, WAKES EASILY UPON ENTRY. TAILINGS WORKER PROVIDES ORIENTATION TO PTS SELF INSULIN PUMP. POC REVIEWED WITH PT, DENIES QUESTIONS. PT DENIES NEEDS AT THIS TIME. CALL LIGHT IN REACH.
--- NOTE | 2021-10-30 08:00 | NUR ---
RN IN ROOM TO ASSESS PT - PT RESTING IN BED, DENIES PAIN OR NAUSEA. AMBULATES INDEPENDENTLY TO BATHROOM WITHOUT DIFFICULY. VOIDING QS. IV SITES PATENT X2, LR STARTED AT 50ML/H. PT REMAINS NPO FOR PROCEDURE. DENIES FURTHER NEEDS AT THIS TIME. CALL LIGHT IN REACH.
--- NOTE | 2021-10-30 09:10 | CONS ---
[facility] [address], [place] [address] Signed DATE OF CONSULTATION: 10/29/2021 CHIEF COMPLAINT: Hematemesis. HISTORY OF PRESENT ILLNESS: Brandon is a 56-year-old female who has a long history of diabetes. I met her last fall when she was in diabetic ketoacidosis and having hematemesis. I helped her with an upper endoscopy at the end of December of 2020 and found that indeed she had a moderate-sized antral gastric ulcer along with mild patchy gastritis. She has a small to moderate sized hiatal hernia. She has chronic distal esophagitis versus Muhammad's esophagus. On this occasion, all her kids have been sick with some type of phlegm and cough. Apparently, she got sick as well. In addition, she has been moved over with insulin pump as an outpatient. She started to get sick and was having phlegm and was coughing up what looked like a dark emesis. She then therefore came to emergency room for evaluation. In the emergency room, her blood sugar was over 400. She was admitted to our internal medicine service with diabetic ketoacidosis as she was last fall. By this morning, she is markedly improved. I was asked to see her for consideration of a repeat upper endoscopy. Currently, she is alert awake and interactive, but she is quite exhausted. Her hemoglobin levels have been stable in her blood sugars were markedly improved and she is making good urine output. PAST MEDICAL HISTORY: 1. GI bleeds. 2. Type 2 diabetes. 3. Gastroesophageal reflux disease. 4. Pneumonia. 5. Anemia. 6. Hypokalemia. 7. Esophagitis. 8. T3 and T4 compression fracture from a horse accident. 9. Small to moderate sized hiatal hernia. 10. History of a gastric ulcer in December 2020. PAST SURGICAL HISTORY: 1. Upper endoscopy in 2013 and in [address] Toñito Rivera for acid reflux. 2. She describes a colonoscopy presumably with Dr. Rivera for collagenous colitis in 2013. 3. She underwent an upper endoscopy in October 2020 with that same GI group and apparently had yeast associated esophagitis requiring Diflucan. 4. She has had cataract surgery with Dr. Reynaldo Gaines. 5. I helped her with upper endoscopy December 27, 2020. Electronically Signed By: VICTOR MANUEL MYERS MD 10/30/21 0910 PATIENT NAME: BRANDON PORRAS CONSULTATION DATE OF : 69 REPORT #: [id number] PHYSICIAN: VICTOR MANUEL MYERS MD PCP: BIANCA LOCK MD REPORT IS CONFIDENTIAL AND NOT TO BE RELEASED WITHOUT AUTHORIZATION [facility] [address] [place] [id number] Signed SOCIAL HISTORY: She does not smoke or drink. Dr. Bianca Lock is the primary care provider. She prefers the [facility]. Darío is her at [phone]. FAMILY HISTORY: None. REVIEW OF SYSTEMS: I reviewed 10 systems with her today and she told me she was switched over to the insulin pump. ALLERGIES: Codeine. MEDICATIONS: Protonix, Zofran, insulin pump, Farxiga, latanoprost eye drops, and timolol eye drops. PHYSICAL EXAMINATION: VITAL SIGNS: Her blood pressure is 137/75, heart rate 81, respiratory rate 19, temperature is 97.1. She is 96% on 2 L nasal cannula. She is 5 feet 4 inches and 70 kg exam. Brandon is 56-year-old female who generally appears her stated age, but she is overweight. She is obviously quite exhausted, but does answer appropriately. LUNGS: Clear to auscultation bilaterally. HEART: Currently tachycardic, but regular. There is no murmur. ABDOMEN: Obese, but soft and nontender. LABORATORY DATA: White blood count 11.7, hemoglobin has been stable just over 12, mean cell volume is 85, and platelets 242. The sodium had been coming down, it is now 148, BUN is generally stable at 28, creatinine 1.2, blood sugar is down to 194. Albumin is 3.5. ASSESSMENT AND PLAN: Brandon is a 56-year-old female who presents with another episode of diabetic ketoacidosis presumably triggered by a viral infection as described above. Apparently, she has been having some phlegm. Although she did have any lives with her in the room today. Once again, she has had some hematemesis with previous ulcer and possibly a Jie-Aiken tear in the past. She has had gastritis in the past. We know she has a hiatal hernia and as well. Right now she is still recovering from her diabetic ketoacidosis and remained stable. We are going to reassess her in the morning. We may add her on late in the morning tomorrow for repeat upper endoscopy to make sure everything is okay. She has expressed understanding, agrees above plan. Electronically Signed By: VICTOR MANUEL MYERS MD 10/30/21 0910 PATIENT NAME: BRANDON PORRAS CONSULTATION DATE OF : 69 REPORT #: [id number] PHYSICIAN: VICTOR MANUEL MYERS MD PCP: BIANCA LOCK MD REPORT IS CONFIDENTIAL AND NOT TO BE RELEASED WITHOUT AUTHORIZATION [facility] [address] [place], [place] [address] Signed Victor Manuel Myers MD ALB/MODL /[id number] cc: Bianca Lock MD Copies: BIANCA LOCK MD ~ Electronically Signed By: VICTOR MANUEL MYERS MD 10/30/[address] PATIENT NAME: BRANDON PORRAS CONSULTATION DATE OF : 69 REPORT #: [id number] PHYSICIAN: VICTOR MANUEL MYERS MD PCP: BIANCA LOCK MD REPORT IS CONFIDENTIAL AND NOT TO BE RELEASED WITHOUT AUTHORIZATION
--- NOTE | 2021-10-30 09:15 | NUR ---
PT LEFT TO OR FOR EGD PROCEDURE VIA STRETCHER.
--- NOTE | 2021-10-30 10:00 | NUR ---
PT RETURNS TO FLOOR FROM OR - PT VS STABLE, 1L O2 APPLIED WHILE PT WAKES. PT VERBAL AND DENIES PAIN OR NEEDS AT THIS TIME.
--- NOTE | 2021-10-30 10:46 | NUR ---
PT USES CALL LIGHT TO REQUEST WATER. PT SWALLOWING WITHOUT DIFFICULTY POST PROCEDURE. PT PUMP READING 102 FOR CBG. PT PROVIDED GENNY CRACKERS AND GRAPE JUICE PER REQUEST. PT SELF PROGRAMS INTAKE INTO PUMP. DENIES FURTHER NEEDS AT THIS TIME.
--- NOTE | 2021-10-30 10:52 | NUR ---
MORNING I&OS CHARTED, PATIENT RESTING IN BED. FRESH ICE WATER PROVIDED. CALL LIGHT IN EASY REACH
--- NOTE | 2021-10-30 11:27 | NUR ---
PATIENT IN SHOWER AT THIS TIME. LINEN CHANGED.
--- NOTE | 2021-10-30 12:15 | NUR ---
PT UP IN CHAIR TO EAT LUNCH. DENIES PAIN OR NAUSEA. STATES SHE IS HUNGRY. MONITOR NOW READING 137 CBG. IV SITE PATENT X2. DENIES FURTHER NEEDS, CALL LIGHT IN REACH.
--- NOTE | 2021-10-30 13:20 | OR ---
[facility] [address], [place] [address] Signed DATE OF OPERATION: 10/30/2021 SURGEON: Victor Manuel Myers MD PREOPERATIVE DIAGNOSES: 1. Coffee-grounds emesis associated with diabetic ketoacidosis. 2. Small to moderate sized hiatal hernia. 3. Chronic iron deficiency anemia. 4. Three small antral gastric ulcers in December 2020. 5. History of gastritis. 6. Possible history of Muhammad's esophagus with negative biopsies. POSTOPERATIVE DIAGNOSES: 1. Moderate patchy gastritis. 2. Moderate-sized hiatal hernia. PROCEDURE: EGD without biopsy. ESTIMATED BLOOD LOSS: None. FINDINGS: No evidence of any ulcers, Jie-Aiken tear, or other ongoing bleeding. She clearly has moderate patchy gastritis consistent with the coffee-ground emesis. INDICATIONS: Brandon is a 56-year-old diabetic female, who actually underwent upper endoscopy with her maintenance supervisor last summer. That being 2020. I met her in December 2020 when she was coming through with diabetic ketoacidosis and coffee-ground emesis. At that time, we found that indeed she has a small to moderate sized hiatal hernia with three small antral gastric ulcers. We did not see any obvious Muhammad esophagus and the biopsies were not concerning. She switched over to an insulin pump and was doing well. Then everyone in the family got a viral illness with cough and phlegm. That put her in diabetic ketoacidosis and she ended up on our internal medicine service. She also had the coffee-grounds emesis once again. I was asked to see her as a general surgeon on-call. After talking with Brandon and our hospitalist service, we decided to repeat the upper endoscopy and make sure that there were no untoward issues that we would need to deal with. I reviewed this with Brandon in detail. She understands upper endoscopy quite well. There is risk including, but not limited to gas bloating, crampy abdominal Electronically Signed By: VICTOR MANUEL MYERS MD 10/30/21 1320 PATIENT NAME: BRANDON PORRAS OPERATIVE REPORT DATE OF : 69 REPORT #: [id number] PHYSICIAN: VICTOR MANUEL MYERS MD PCP: BIANCA HARKINS MD REPORT IS CONFIDENTIAL AND NOT TO BE RELEASED WITHOUT AUTHORIZATION [facility] [address] [place] [id number] Signed pain, bleeding, perforation requiring surgery, and missed diagnosis. In addition, she clearly needs monitored anesthesia care given her current diabetic ketoacidosis as well as her recent upper respiratory infection. She had expressed understanding and wished to proceed. PROCEDURE NOTE: Brandon was taken into our endoscopy suite and placed in a supine semi-recumbent position. She was given IV sedation with propofol per our nurse etl lead. A bite block was utilized for the case. The adult gastroscope was introduced and advanced out into the stomach. She had quite a bit of gastric food in the fundus in the antrum. It took us a while to suction it out and she had some phlegm in her posterior oropharynx, so the scope had been withdrawn, so we could better suction that out. After that, the scope was reintroduced. We went into the third portion the duodenum. Duodenum and pyloric channel were unremarkable. There were no ulcers on this occasion in the pyloric channel or the antrum. She had several areas of moderately significant patchy gastritis. Upon retroflexion of the scope, we could see small to moderate sized hiatal hernia. The scope was withdrawn up through the area of the GE junction, which was compliant without stricture. We examined the area of the hiatal hernia very carefully and could not see any Jie Aiken tears. She does have some disruption and irritation around the Z-line, but otherwise no obvious Muhammad's on this occasion. The distal, middle and upper esophagus were otherwise unremarkable. After this, the gas was suctioned out and the gastroscope removed. Brandon tolerated the procedure quite well. RECOMMENDATIONS: Brandon will be returned to the ICU room and resumed on her diabetic diet. She will continue on her Protonix. She can follow up my office as needed. Victor Manuel Myers MD ALB/MODL /[id number] cc: MD Bianca Malik MD Electronically Signed By: VICTOR MANUEL MYERS MD 10/30/21 1320 PATIENT NAME: BRANDON PORRAS OPERATIVE REPORT DATE OF : 69 REPORT #: [id number] PHYSICIAN: VICTOR MANUEL MYERS MD PCP: BIANCA HARKINS MD REPORT IS CONFIDENTIAL AND NOT TO BE RELEASED WITHOUT AUTHORIZATION [address] [address] Signed Wood Tang MD Copies: VICTOR MANUEL MYERS MD, RUSSELL BARR MD ~ Electronically Signed By: VICTOR MANUEL MYERS MD 10/30/21 1320 PATIENT NAME: BRANDON PORRAS OPERATIVE REPORT DATE OF : 69 REPORT #: [id number] PHYSICIAN: VICTOR MANUEL MYERS MD PCP: BIANCA HARKINS MD REPORT IS CONFIDENTIAL AND NOT TO BE RELEASED WITHOUT AUTHORIZATION
== END 2021-10-30 16:15 | disposition home or self-care (01) | DRG 377 ==
LOC: ED 11:44 → CCU 15:10
PROVIDERS: Colon & Rectal Surgery; ADMIT Family Medicine; ATTEND Family Medicine
PROC: 0DJ08ZZ Inspection of Upper Intestinal Tract, Via Natural or Artificial Opening Endoscopic (ICD-10-PCS; principal; 2021-10-30 10:30)
DX: K92.0 Hematemesis (principal); E11.10 Type 2 diabetes mellitus with ketoacidosis without coma; N17.9 Acute kidney failure, unspecified; E87.0 Hyperosmolality and hypernatremia; K29.71 Gastritis, unspecified, with bleeding; K21.9 Gastro-esophageal reflux disease without esophagitis; Z20.822 Contact with and (suspected) exposure to COVID-19; D50.9 Iron deficiency anemia, unspecified; E87.6 Hypokalemia; K20.90 Esophagitis, unspecified without bleeding; K44.9 Diaphragmatic hernia without obstruction or gangrene; Z87.11 Personal history of peptic ulcer disease; Z98.890 Other specified postprocedural states; Z87.81 Personal history of (healed) traumatic fracture; Z87.01 Personal history of pneumonia (recurrent); Z98.49 Cataract extraction status, unspecified eye; Z88.5 Allergy status to narcotic agent; Z79.899 Other long term (current) drug therapy; Z79.4 Long term (current) use of insulin
CPT/HCPCS: 36415; 80048; 80053; 82010; 82803; 83036; 83690; 83735; 85025; 86850; 86900; 86901; 87502; C9113; C9803; J1200; J1790; J1815; J2001; J2405; J2550; J2704; J3480; J7030; J7042; J7070; J7121; U0003

== ENCOUNTER 2023-01-24 10:42 | Inpatient (IN) | payer OTHER ==
[~2023-01-24] VITALS: Ht 162.6 cm; Wt 87.0 kg
[~2023-01-24 10:42] MED LIST changes: +ONDANSETRON HCL8 MG PO
[2023-01-24] MEDS ORDERED: LISINOPRIL5 MG PO (11:05)
[2023-01-24] MEDS ORDERED: RYBELSUS3 MG PO (11:06)
[2023-01-24] MEDS ORDERED: VITAMIN D21250 MCG PO (11:06)
[2023-01-24] MEDS ORDERED: METOCLOPRAMIDE10 MG PO (11:06)
[2023-01-24 11:34] LABS: BASOPHILS 0.4 % (0-2); EOSINOPHILS 0.6 % (0-6); HEMATOCRIT 40.6 % (35.0-50.0); HEMOGLOBIN 13.3 g/dL (12.0-18.0); LYMPHOCYTES 11.3 % (24-44); MCHC 32.8 g/dl (30-36); MCV 85.5 fl (81-99); MONOCYTES 7.4 % (0-12); NEUTROPHILS 80.3 % (39-80); PLATELET COUNT 175 K/uL (140-440); RBC 4.75 M/ul (4.3-5.7); RDW 13.7 (10.5-15.0)
[2023-01-24 11:51] LABS: ALBUMIN 3.1 g/dL (3.4-5.0); ALBUMIN/GLOBULIN RATIO 0.82 (1.1-2.4); ANION GAP 13.1 (7-21); BILIRUBIN, TOTAL 0.2 ng/dL (0.2-1.0); BUN/CREATININE RATIO 15.03 (6.0-28.6); CALCIUM 8.4 mg/dL (8.5-10.1); CREATININE, SERUM 1.33 mg/dL (0.55-1.02); POTASSIUM 4.1 mmol/L (3.5-5.1); PROTEIN, TOTAL 6.9 g/dL (6.4-8.2)
[2023-01-24 12:01] LABS: INFLUENZA B NAA NEGATIVE (NEGATIVE); RESPIRATORY SYNCYTIAL VIR NAA NEGATIVE (NEGATIVE)
[2023-01-24 15:57] LABS: BILIRUBIN, URINE NEGATIVE (negative); BLOOD/HGB, URINE TRACE-L (Negative); KETONE, URINE >=80 (Negative); LEUK ESTERASE, URINE NEGATIVE (negative); NITRITE, URINE NEGATIVE (negative); PH, URINE 5.5 (5-7)
[2023-01-24 16:06] LABS: BACTERIA, URINE RARE /hpf (negative); CASTS, URINE NONE SEEN \\lpf; COLLECTION TYPE, URINE CLEAN CATCH; CRYSTALS, URINE NONE SEEN (0-1+); EPITHELIAL CELLS, URINE SQUAMOUS 4+ /lpf (0-1+); REFLEX CULTURE, URINE No (No); WHITE BLOOD CELLS, URINE 0-1 /HPF (0-5)
[2023-01-24 16:13] LABS: ABO O; RH POSITIVE
[2023-01-24 16:14] LABS: ANTIBODY SCREEN NEGATIVE
[2023-01-24 17:09] VITALS: BP 106/61
--- NOTE | 2023-01-24 18:28 | NUR ---
PT CALLS FOR UP TO THE TOILET AMBULATES INDEPENDANTLY SBA ONLY. DOCTOR CONTACTED R/T FLUIDS EITHER ORAL OR IV GIVES OKAY FOR ICE CHIPS NO FURTHER ORDERS YET.
[2023-01-24 20:12] LABS: BASOPHILS 0.3 % (0-2); EOSINOPHILS 0.2 % (0-6); HEMATOCRIT 38.8 % (35.0-50.0); HEMOGLOBIN 12.6 g/dL (12.0-18.0); LYMPHOCYTES 16.7 % (24-44); MCH 27.9 (27-36); MCHC 32.6 g/dl (30-36); MCV 85.4 fl (81-99); MONOCYTES 8.3 % (0-12); NEUTROPHILS 74.5 % (39-80); PLATELET COUNT 156 K/uL (140-440); RBC 4.54 M/ul (4.3-5.7); RDW 13.7 (10.5-15.0)
[2023-01-24 20:29] VITALS: BP 110/53
--- NOTE | 2023-01-24 20:46 | NUR ---
Pt awake, moist productive cough present. had another 200cc thick brown-danielle colored phlegm/emesis. c/o sore throat. lungs thight, coarse crakles bilat and dim at bases. abd soft, indy, has insulin pump. CBG was 181, she gave her own 3units Insulin . moves and repositions self in bed. Pt was on room air at initial assessment sats were 90% on room air, after coughing and not doing much in bed her sats dropped to 84%, O2 placed on at 2L, after a few CDB her sats went up to 99% on 2L, after a few minuts still 99-100 on 2L, O2 titrated back to 1L and sats have remained steady at 93-95%, denies sob. off O2, dropped to 88%, O2 not chronic. will leave at 1L at this time. to be notified as pt would like throat lozengers and cough medicine. NPO
--- NOTE | 2023-01-24 21:01 | NUR ---
DR DUMONT NOTIFIED OF PTS ASKING IF SHE COULD USE HER OWN INSULIN PUMP, SORE THROAD AND COUGH MEDS. NOTIFIED OF PTS BEING IN O2 AT THIS TIME. NO NEW ORDERS, HE WILL COME AND CHECK ON PT IN A LITTLE WHILE. PT WILL BE MEDICATED WITH ZOFRAN PER EMESIS
--- NOTE | 2023-01-24 22:07 | EKG ---
[facility] [address] [place] [address] Signed Sinus tachycardia Otherwise normal ECG When compared with ECG of 23-DEC-2020 21:56, ST no longer depressed in Lateral leads T wave inversion no longer evident in Inferior leads T wave inversion no longer evident in Anterolateral leads Confirmed by Papa Cruz MD () on 01/24/2023 10:07:36 PM Electronically Signed By: PAPA CRUZ MD 01/24/23 2207 PATIENT NAME: VERNBRANDONMARIBEL YANEZ Electrocardiogram DATE OF : 69 PHYSICIAN: PAPA CRUZ MD REPORT #: [id number] REPORT IS CONFIDENTIAL AND NOT TO BE RELEASED WITHOUT AUTHORIZATION
--- NOTE | 2023-01-24 22:51 | NUR ---
IVF STARTED, MEDICATED WITH TESSALON PERLES PER COUGH. HAD 50CC MORE OF EMESIS. UP TO BR ON 1L O2. SATS 94%, VOIDED SMALL AMOUNT DARK YELLOW URINE DESATTED TO 79 ON 1L WHEN RETURNING TO BED. O2 TITRATED TO 2LNC, SATS 93-94%. WILL CONT TO ASSESS. DENIES SOB WITH EXERTION. TAKING ICE CHIPS FOR COMOFRT. REPOSITIONS SELF IN BED, HOB ELEVATED. PLEASANT AND ELEVATED
--- NOTE | 2023-01-25 00:12 | NUR ---
RSTING EYES CLOSED, NO DISTRESS, NO COUGH AT THIS TIME. O2 2LNC INPLACE. IVF INFUSING. TURNS AND REPOSITIONS SELF IN BED.
[2023-01-25 02:10] VITALS: BP 116/60
--- NOTE | 2023-01-25 02:24 | NUR ---
Pt awake, continues to have moist productive cough of very thick green mucus Had thick phlegm danielle coloring. Was medicated earlier with Zofran. IVF infusing, O2 2L NC in place, lungs with insp/exp crackles bilat. turns and repositions self in bed. Insulin pump in place.
--- NOTE | 2023-01-25 02:30 | NUR ---
c/o insomnia, medicated with Melatonin 3mg. Med teaching done, stated understanding
--- NOTE | 2023-01-25 04:18 | NUR ---
O2 2LNC, resting, eyes closed, no distress. Requested Melatonin for insomnia earlier, effective. IVF infusing, no cough heard at this time. Continues on droplet isolation. NPO. Insulin pump in place. no more fresh emesis since earlier
[2023-01-25 05:25] VITALS: BP 123/55
--- NOTE | 2023-01-25 05:38 | NUR ---
Used call light. Up to br, voided QS dark yellow urine. O2 2LNC sats 94%, no sob. Continues to have moist productive cough thick green colored urine. has ice chips for comfort, emesis after cough. declines need for zofran. IVF infusing, Insulin pump L abd . temp 99.[address] Smith in room examining pt. Pt continues NPO
[2023-01-25 05:56] LABS: BASOPHILS 0.3 % (0-2); EOSINOPHILS 0.6 % (0-6); LYMPHOCYTES 11.2 % (24-44); MCH 28.2 (27-36); MCHC 33.2 g/dl (30-36); MCV 84.9 fl (81-99); MONOCYTES 10.9 % (0-12); PLATELET COUNT 160 K/uL (140-440); RBC 4.24 M/ul (4.3-5.7); RDW 13.5 (10.5-15.0)
[2023-01-25 06:12] LABS: ALBUMIN 2.5 g/dL (3.4-5.0); ALBUMIN/GLOBULIN RATIO 0.71 (1.1-2.4); ANION GAP 12.8 (7-21); BILIRUBIN, TOTAL 0.3 ng/dL (0.2-1.0); BUN/CREATININE RATIO 18.68 (6.0-28.6); CALCIUM 7.7 mg/dL (8.5-10.1); CREATININE, SERUM 0.91 mg/dL (0.55-1.02); MAGNESIUM 1.7 mg/dL (1.8-2.4); PHOSPHORUS, INORGANIC 2.4 mg/dL (2.5-4.9); POTASSIUM 3.8 mmol/L (3.5-5.1)
--- NOTE | 2023-01-25 07:45 | NUR ---
pt resting eyes closed at time of shift report, left undisturbed. call light and needed items in reach
--- NOTE | 2023-01-25 08:56 | CONS ---
[facility] [address] [place], [place] [address] Signed DATE OF CONSULTATION: 01/25/2023 CHIEF COMPLAINT: Hematemesis. HISTORY OF PRESENT ILLNESS: Brandon is a 57-year-old, obese, diabetic female, who I have known for several years. She is finally on her insulin pump and has her diabetes under much better control. She has been through multiple upper endoscopies at least five that I am aware of. Two came with myself for hematemesis while in the hospital. More recently, she has had a cough and upper respiratory infection type symptoms for about three weeks. She is not sure if it is two different respiratory infections or one. We know the influenza virus has come to our community. People have been quite sick. In fact, she tested positive for influenza when she came in the emergency room. She had some vomiting with some blood in the emergency room. She was admitted to our medical service. She is quite dehydrated and exhausted. She clearly has thickened bronchial dominguez on the CT scan. She has required oxygen per nasal cannula just lying in bed. Chest x-ray was not particularly concerning. Labs were not overly concerning. Her ketones were high and now she is catching up and having good urine output this morning. I have been asked to see her as a general surgeon on-call for consideration of upper endoscopy if her hematemesis would continue. PAST MEDICAL HISTORY: GI bleeds, type 2 diabetes, gastroesophageal reflux disease, hiatal hernia, pneumonia, anemia, hypokalemia, esophagitis, T3 and T4 compression fractures from a horse accident and history of gastric ulcers in 2020. PAST SURGICAL HISTORY: Includes upper endoscopy in [address] Toñito Rivera for acid reflux. She talks about a colonoscopy presumably with Dr. Rivera or one of his colleagues for colitis in 2013. She mentions upper endoscopy in 2020 with the same GI group up in [place], [place]. Apparently, she had a yeast infection in her esophagus requiring Diflucan. She has had cataract surgery with Dr. Sergey Gaines. I helped her with upper endoscopy in October 2021 as well as December 2020. We know that she has had gastritis and hiatal hernia associated with those upper endoscopies along with moderate-sized antral ulcers and distal esophagitis. SOCIAL HISTORY: She does not smoke or drink. Dr. Bianca Lock is her primary care provider. She prefers [facility]. Darío is her at [phone]. FAMILY HISTORY: None. Electronically Signed By: VICTOR MANUEL MYERS MD 01/25/23 0856 PATIENT NAME: BRANDON PORRAS CONSULTATION DATE OF : 69 REPORT #: [id number] PHYSICIAN: VICTOR MANUEL MYERS MD PCP: BIANCA LOCK MD REPORT IS CONFIDENTIAL AND NOT TO BE RELEASED WITHOUT AUTHORIZATION [address] [address] Signed REVIEW OF SYSTEMS: She had 10 systems reviewed. She was talking to me about the insulin pump, but she is still using that currently. ALLERGIES: Codeine. MEDICATIONS: Protonix, Zofran, insulin pump, Farxiga, latanoprost eye drops and timolol eye drops. PHYSICAL EXAMINATION: VITAL SIGNS: Blood pressure 116/60, heart rate is 108, respiratory rate 18, temperature 99.5. She is 96% on room air. She is 5 feet 4 inches at 87 kg with a body mass index of 32. GENERAL: Brandon is a 57-year-old, obese female, lying supine in her hospital bed. Our nurse is with this at the bedside. She is on O2 nasal cannula. It is quite clear that she is exhausted and quite tired. LUNGS: Her lungs sound actually fairly good. HEART: Her heart is tachycardic without murmur. ABDOMEN: Obese, but soft and nontender. LABORATORY DATA: Her white blood cell count 7.2, hemoglobin 12, neutrophils 74, platelets 156. BUN 20, creatinine 1.3, glucose 146 to 181. Urinalysis showed ketones. Her D-dimer was elevated at 0.60. Albumin is 3.1. Liver function tests are negative. Influenza is positive. RADIOGRAPHIC STUDIES: The chest x-ray is unremarkable. A CT scan of her chest shows diffuse bronchial wall thickening and some thickening in the distal to mid esophagus. ASSESSMENT AND PLAN: Brandon is a 57-year-old, obese, diabetic female, who is fairly sick from the influenza A virus that has come to our community in the last 30 days. Whenever she is sick she seems to have nausea and vomiting and ends up having some blood in her vomit. Right now, she has been hemodynamically stable and her hemoglobin has been stable as well. She is requiring oxygen per nasal cannula. We can see she has diffuse bronchial wall thickening on the CT scan. I explained to Brandon we certainly know what she has had in the past. We could certainly treat that currently. I would probably not sedate her currently unless absolutely necessary. It certainly increases her risk. Of course, she is very familiar with upper and lower endoscopy. She has expressed understanding and agrees above plan. Electronically Signed By: VICTOR MANUEL MYERS MD 01/25/23 0856 PATIENT NAME: BRANDON PORRAS CONSULTATION DATE OF : 69 REPORT #: [id number] PHYSICIAN: VICTOR MANUEL MYERS MD PCP: BIANCA LOCK MD REPORT IS CONFIDENTIAL AND NOT TO BE RELEASED WITHOUT AUTHORIZATION [address] [place] [address] Signed Victor Manuel Myers MD [facility] /[id number] cc: MD Victor Manuel Blevins MD Copies: BIANCA LOCK MD, ANDREW L MD ~ Electronically Signed By: VICTOR MANUEL MYERS MD 01/25/23 0856 PATIENT NAME: BRANDON PORRAS CONSULTATION DATE OF : 69 REPORT #: [id number] PHYSICIAN: VICTOR MANUEL MYERS MD PCP: BIANCA LOCK MD REPORT IS CONFIDENTIAL AND NOT TO BE RELEASED WITHOUT AUTHORIZATION
[2023-01-25 09:43] VITALS: BP 112/53
--- NOTE | 2023-01-25 09:51 | NUR ---
PATIENT UP TO BATHROOM AND BACK TO BED, SBA. VITALS AND I&O'S DONE AND CHARTED. CALL LIGHT IN REACH. NO FURTHER NEEDS AT THIS TIME.
--- NOTE | 2023-01-25 09:55 | NUR ---
Attempted to see, she is in the bathroom. Will see later or tomorrow.
--- NOTE | 2023-01-25 10:22 | NUR ---
PT RESTING EYES CLOSED, AWAKENS TO VOICE. AGREES TO CLEAR LIQUIDS FOR COMFORT STATES SHE FEELS BETTER THAN YESTERDAY.
--- NOTE | 2023-01-25 11:11 | NUR ---
PT RESTING EYES CLOSED. NEEDED ITEMS IN REACH
--- NOTE | 2023-01-25 11:29 | NUR ---
MS COTTO. NO VISIT. PT WALKING HALLWAYS WITH ANDRÉS PUTNAM. PROVIDED SILENT PRAYER.
--- NOTE | 2023-01-25 12:13 | NUR ---
MED REC COMPLETE
--- NOTE | 2023-01-25 12:26 | NUR ---
PT AWAKE HAVING A CLEAR LIQUID TRAY, DENIES NEED OF OTHER ITEMS.
[2023-01-25 14:19] VITALS: BP 113/65
--- NOTE | 2023-01-25 14:34 | NUR ---
PT CALLS APPROPRIATELY FOR UP OUT OF BED. AMBULATES INDEPENDANTLY TO THE TOILET STEADY ON HER FEET. ROBITUSSIN ADMINSTERED PER ORDERS, COUGH IS IMPROVED OVER YESTERDAY.
--- NOTE | 2023-01-25 16:09 | NUR ---
UR NOTE [facility] GASTROINTESTINAL BLEEDING, UPPER (ISC) INPATIENT 01/24/23 MET CLINICAL INDICATIONS FOR ADMISSION TO INPATIENT CARE GL DAY 1
--- NOTE | 2023-01-25 16:47 | NUR ---
PT AGREES TO SHOWER, SBA TO SEAT ON SHOWER CHAIR DENIES NEED OF ASSIST WITH PERSONAL CARES. CALL LIGHTS X2 IN REACH PT ENCOURAGED TO CALL FOR "ANY" NEED AT ALL. TOOTHBRUSH AND OTHER CARE ITEMS AVAILABLE FOR PT.
--- NOTE | 2023-01-25 17:43 | NUR ---
PT SATS ARE CONSISTANT 93% ON RA. 02 LEFT IN REACH, PT ENCOURAGED TO WEAR IT IF SHE FEELS SOB OR IF SHE PLANS TO SLEEP. SHOWER WAS WELL TOLERATED, SHE AGREES SHE FEELS MUCH IMPROVED. SITTING UP WATCHING TV AT THIS TIME
[2023-01-25 18:05] VITALS: BP 120/56
[2023-01-25 21:14] VITALS: BP 103/69
--- NOTE | 2023-01-25 21:32 | NUR ---
Up to brp, voided plus had a liquid bm. Back to bed, on room air. sats 89-91% on room air, O2 back on at 2LNC, satting at 94%. Lungs with insp wheezing at bases, crackles t/o. L abd Insulin pump in place, abd soft. IVF infusing RAC, medicated with Robitussing per cough and Melatonin per insomina. Continues to have moist productive cough, green discharge. on clear liquids, tolerating wewll, no emesis this shift. stated "I feel better". Continues on droplet isolation
--- NOTE | 2023-01-26 00:31 | NUR ---
rESTING, HOB ELEVATED WITH PILLOWS, O2 2LNC, IVF INFUSING. RECEIVED MELATONIN EARLIER ON SHIFT, EFFECTIVE. CONTINUES ON DROPLET ISOLATION PRECAUTIONS. NO COUGH HEARD AT THIS TIME OR C/O SORE THROAT
--- NOTE | 2023-01-26 01:00 | NUR ---
Pt used call light, up to brp, O2 2LNC, voided, toleratd well. Back to bed, sats 94% on return, 2LNC. 97 after a few minutes sats up to 97%, no c/o sob, mild harsh moist productive cough present on return, Robitussin cough syrup and Tessalon Perles given on request. CBG as per her own insulin pump 169, gave self 1 UNit Insulin/ Novolog. no s/sx hyperglycemia, turns and repositions self in bed. No emesis, tolerating clear liquid diet
--- NOTE | 2023-01-26 02:46 | NUR ---
PT IN BED, O2 2LNC, NO DISTRESS, IVF INFUSING, RESP EVEN, UNLABORED. CONTINUES ON DROPLET ISOLATION
[2023-01-26 04:59] VITALS: BP 122/62
--- NOTE | 2023-01-26 05:11 | NUR ---
AWAKES EASILY, COOP WITH VITALS AND ASSESSMENT. ON TITRATED FROM 2LNC TO 1L TO OFF. SATS 94% ROOM AIR ON RETURN FROM BRP, TEMP 99.9, IS GIVEN AND INSTRUCTED, STATED UNDERSTANDING. IVF INFUSING W/O PROBLEMS. MEDICATED WITH COUGH SYRUP PER MOIST PRODUCTIVE COUGH. AND WITH CHLORASEPTIC SPRAY PER C/O RTHROAT PAIN. SBA, UP TO BR, VOIDED, BACK TO BED. COVERS REMOVED, ROOM TEMP AT 69. NO OTHER REQUESTS OR C/O. FRESH ICE CUBES AND WATER GIVEN. COOPERATIVE. L UPPER ARM ACCUCHECK SENSOR INPLACE, L ABD INSULIN PUMP. CONTINUES OMN DROPLET ISOLATION
--- NOTE | 2023-01-26 06:39 | NUR ---
temp 98.2 oral, on room air. her home blanket returned and applied to feet at her requests. moist productive cough present
--- NOTE | 2023-01-26 07:10 | NUR ---
REPORT RECEIVED FROM THE DIRECTOR OF CORPORATE MARKETING RN MARIO. PATIENT IS LYING IN BED WITH EYES CLOSED. RESPIRATIONS ARE EVEN AND UNLABORED. CALL LIGHT AND PERSONAL BELONGINGS ARE WITHIN REACH.
--- NOTE | 2023-01-26 09:20 | NUR ---
Spoke with Tessy. She lives in [place] with her spouse and 5 adopted children. She denies needs. States they have all been ill. She does not use any DME. She is active and drives. She plans on dc to home. Spouse and chilren ages 3-10 will assist her. Her sister and brother in law have been in to help her with the children and will cont. to do so. She denies financial issue. Spouse is [place] so they get food boxes from the [place]. She denies using food [place] or food stamp. Home today.
[2023-01-26 09:24] VITALS: BP 105/62
--- NOTE | 2023-01-26 09:28 | NUR ---
PATIENT SITTING UP IN BED AT THIS TIME. VITALS AND I&O'S CHARTED. CALL LIGHT IN REACH. NO FURTHER NEEDS AT THIS TIME.
[2023-01-26] MEDS ORDERED: OSELTAMIVIR PHO75 MG PO (10:14)
--- NOTE | 2023-01-26 10:30 | NUR ---
PATIENT 0900 MEDICATIONS AND PRN ADMINISTERED PER THE EMAR. PATIENT FULL ASSESSMENT COMPLETE AND DOCUMENTED IN THE CHART. PATIENT LUNG SOUNDS ARE CLEAR BILATERALLY IN THE UPPER LOBES AND COURSE CRACKLES BILATERALLY IN THE LOWER LOBES. PATIENT ON ROOAM AIR. NORMAL S1 AND S2 AUSCULTATED. RADIAL AND PEDAL PULSES ARE STRONG BILATERALLY. BOWEL TONES ARE ACTIVE IN ALL FOUR QUADRANTS. PATIENT IS ON CLEAR LIQUIDS AND TOLERATING WELL. IV SITE IS CLEAN, DRY, AND INTACT. IV FLUSHES WELL WITH 10 ML NORMAL SALINE. PATIENT IN NO PAIN AT THIS TIME. PATIENT COUGH IS MOIST AND LOOSE. PATIENT ASKING ABOUT PLAN FOR DISCHARGE TODAY. PATIENT EDUCATED ON WHAT THE DISCHARGE PROCESS LOOKS LIKE. RN ASKED PATIENT TO TELL US WHEN SHE HAS AN IDEA WHEN HER RIDE WILL BE HERE AND WE WILL GET HER READY FOR WHEN THEY ARRIVE. PATIENT STATED NO FURTHER NEEDS AT THS TIME. CALL LIGHT AND PERSONAL BELONGINGS ARE WITHIN REACH.
[2023-01-26 12:20] VITALS: BP 122/62
== END 2023-01-26 12:25 | disposition home or self-care (01) | DRG 379 ==
LOC: ED 10:42 → MS 16:12
PROVIDERS: Emergency Medicine; ADMIT Family Medicine; ATTEND Internal Medicine
DX: K92.0 Hematemesis (principal); J10.1 Influenza due to other identified influenza virus with other respiratory manifestations; E83.42 Hypomagnesemia; E66.9 Obesity, unspecified; E11.9 Type 2 diabetes mellitus without complications; E86.0 Dehydration; K21.9 Gastro-esophageal reflux disease without esophagitis; K44.9 Diaphragmatic hernia without obstruction or gangrene; Z87.11 Personal history of peptic ulcer disease; Z88.5 Allergy status to narcotic agent; Z96.41 Presence of insulin pump (external) (internal); Z79.4 Long term (current) use of insulin
CPT/HCPCS: 36415; 71045; 71260; 80053; 81001; 83735; 84100; 85025; 85379; 86850; 86900; 86901; 87502; 93005; 93010; A9270; C9113; J2405; J3475; J7030; J7060; J7121; Q9967; U0002